=== PATIENT | female | born 1985 | race Hispanic/Latino ===

== ENCOUNTER 2019-02-16 23:28 | Emergency (ER) | payer OTHER | END 2019-02-17 01:12 | disposition home or self-care (01) | LOC: EDH 23:28 | DX: H92.09 Otalgia, unspecified ear (principal); J45.909 Unspecified asthma, uncomplicated; F32.9 Major depressive disorder, single episode, unspecified; Z90.49 Acquired absence of other specified parts of digestive tract | CPT/HCPCS: 99281 ==

== ENCOUNTER 2020-01-07 13:06 | Emergency (ER) | payer OTHER ==
[2020-01-07 13:59] LABS: APPEARANCE,URINE Clear (CLEAR); BILIRUBIN,URINE Negative (NEGATIVE); COLOR,URINE Yellow (YELLOW); GLUCOSE, URINE (UA) Negative (NEGATIVE); KETONES,URINE Negative (NEGATIVE); LEUKOCYTE ESTERASE ,URINE Negative (NEGATIVE); NITRATE,URINE Negative (NEGATIVE); OCCULT BLOOD,URINE Negative (NEGATIVE); PROTEIN,URINE Negative (NEGATIVE); UROBILINOGEN,URINE 0.2 mg/dL (0.2-1.0)
[2020-01-07 14:02] LABS: HCG,QUAL RESULT NEGATIVE (NEGATIVE)
[2020-01-07] MEDS ORDERED: KETOROLAC TROMETHAMINE 60 MG/2 ML VIAL ONE (14:15)
== END 2020-01-07 15:23 | disposition home or self-care (01) ==
LOC: EDH 13:06
DX: M25.552 Pain in left hip (principal); F41.9 Anxiety disorder, unspecified; J45.909 Unspecified asthma, uncomplicated; F32.9 Major depressive disorder, single episode, unspecified; Z90.49 Acquired absence of other specified parts of digestive tract
CPT/HCPCS: 73521; 81003; 81025; 87486; 87797; 96372; 99284; J1885